=== PATIENT | male | born 1950 | race Two or more races ===

== ENCOUNTER 2022-04-16 16:46 | Inpatient (IN) | payer BC, MEDICARE ==
[~2022-04-16] VITALS: Ht 162.6 cm; Wt 70.3 kg
--- NOTE | 2022-04-16 17:00 | NUR ---
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 PACEMAKER PLACED YESTERDAY C/O "HEMATOMA" AND PAIN. WAS ADVISED TO COME TO ED. TO ER BED 1, HOOKED TO DRYING UNIT FELTING MACHINE OPERATOR, CHANGED TO HOSP GOWN, WARM BLANKET PROVIDED. AWAITING MD CRAFT
--- NOTE | 2022-04-16 17:28 | NUR ---
DR SANDERSON AT BEDSIDE FOR EVAL.
[2022-04-16 17:44] LABS: BASOPHILS # (AUTO) 0.1 K/uL (0.0-0.2); BASOPHILS % (AUTO) 0.6 % (0.0-2.0); EOSINOPHILS % (AUTO) 1.5 % (0.0-6.0); HEMATOCRIT 42 % (39-51); HEMOGLOBIN 14.2 g/dL (13.5-17.5); LYMPHOCYTES # (AUTO) 0.8 K/uL (0.8-4.8); LYMPHOCYTES % (AUTO) 9.4 % (20.0-44.0); MEAN CORPUSCULAR HGB CONC 34 g/dl (31.0-36.0); MEAN CORPUSCULAR VOLUME 92 fL (80-96); MONOCYTES % (AUTO) 11.1 % (2.0-12.0); NEUTROPHILS # (AUTO) 6.9 K/uL (1.8-8.9); NEUTROPHILS % (AUTO) 77.4 % (43.0-81.0); PLATELET COUNT (AUTO) 264 K/uL (150-450); RED BLOOD CELL COUNT(AUTO) 4.58 MIL/uL (4.5-6.0); WHITE BLOOD COUNT (AUTO) 8.9 K/uL (4.3-11.0)
--- NOTE | 2022-04-16 17:58 | NUR ---
RAPID COVID SWAB DONE AND SENT TO LAB
[2022-04-16 18:05] LABS: CALCIUM, SERUM 8.7 mg/dL (8.5-10.1); CARBON DIOXIDE 25 mmol/L (21-32); CHLORIDE 106 mmol/L (98-107); CREATININE 1.1 mg/dL (0.6-1.3); GLUCOSE 111 mg/dL (74-106); POTASSIUM 3.6 mmol/L (3.5-5.1); SODIUM SERUM 140 mmol/L (136-145); UREA NITROGEN, BLOOD 19 mg/dL (7-18)
[2022-04-16] MEDS ORDERED: LAMO100T17 PO (18:10)
[2022-04-16] MEDS ORDERED: ATOR20TA PO (18:10)
[2022-04-16] MEDS ORDERED: TRAZ-252 PO (18:10)
[2022-04-16] MEDS ORDERED: DULO20CA19 PO (18:10)
[2022-04-16] MEDS ORDERED: LISD40CA PO (18:10)
[2022-04-16 18:12] LABS: ALANINE AMINOTRANSFERASE 44 U/L (12-78); ALBUMIN 2.9 g/dL (3.4-5.0); ALKALINE PHOSPHATASE 108 U/L (46-116); ASPARTATE AMINOTRANSFERASE 23 U/L (15-37); BILIRUBIN,DIRECT 0.1 mg/dL (0.0-0.2); BILIRUBIN,TOTAL 0.5 mg/dL (0.2-1.0); TOTAL PROTEIN, SERUM 6.1 g/dL (6.4-8.2)
--- NOTE | 2022-04-16 18:59 | NUR ---
BED 311-2
[2022-04-16] MEDS ORDERED: ACETAMINOPHEN 325 MG TABLET PO PRN (19:00)
[2022-04-16] MEDS ORDERED: ONDANSETRON HCL/PF 4 MG/2 ML VIAL IVP PRN (19:00)
[2022-04-16] MEDS ORDERED: MAGNESIUM HYDROXIDE 30 ML UDC PO PRN (19:00)
[2022-04-16] MEDS ORDERED: ZOLPIDEM TARTRATE 5 MG TABLET PO PRN (19:00)
[2022-04-16] MEDS ORDERED: Z GUARD REMEDY 4 OZ OINT TP PRN (19:00)
[2022-04-16] MEDS ORDERED: MAG HYDROX/AL HYDROX/SIMETH 30 ML UDC PO PRN (19:00)
--- NOTE | 2022-04-16 19:35 | NUR ---
REPORT GIVEN TO KOBI JANSEN OF TELE UNIT
--- NOTE | 2022-04-16 19:49 | NUR ---
RECEIVED REPORT FROM INDERJIT DALEY. PATIENT WILL BE MOVED TO 311-2 FOR ADMISSION D/T POSSIBLE PACEMAKER DYSFUNCTION. PATIENT IS AAOX4. WITH PERIPHERAL LINE ON LEFT AC G18. PATIENT JUST HAD PACEMAKER PLACEMENT YESTERDAY. THERE IS A VISIBLE HEMATOMA ON LEFT UPPER ANTERIOR CHEST. ATTACHED TO MONITOR, VITALS CHECKED.
--- NOTE | 2022-04-16 19:52 | NUR ---
PATIENT TRANSFERRED UNDER ACLS
[2022-04-16 20:00] VITALS: BP 113/65
--- NOTE | 2022-04-16 20:02 | NUR ---
TRANSFERRED PATIENT TO [facility]- VIA STRETCHER.
[2022-04-16] MEDS: ASPIRIN 81 MG TAB.CHEW PO SCH (21:35)
[2022-04-16] MEDS: TRAZODONE 50 MG TABLET PO SCH (21:36)
[2022-04-16] MEDS: LamoTRIgine 100 MG TABLET PO SCH (21:37)
--- NOTE | 2022-04-16 22:10 | NUR ---
GREENKEEPERSOFTWARE PROJECT MANAGER NOTES PATIENT TRANSFERRED IN UNIT AT AROUND 1950, ACCOMPANIED BY 2 ER PERSONNELS AND HIS , VIA STRETCHER. PATIENT IS A/OX4, NO S/S OF APPARENT DISTRESS ON ROOM AIR. PATIENT ANXIOUS/WORRIED-- EMOTIONAL SUPPORT OFFERED. WISHES TO BE FULL CODE. AND IS UP-TO-DATE WITH ALL HIS IMMUNIZATIONS INCLUDING COVID. PATIENT LCW WHERE PACEMAKER AT NOTED AT BE RED. NEW ID BAND ON PATIENT BEDSIDE. IV ACCESS L.AC #18G -- SL. ORIENTED IN THE UNIT AND THE USE OF CALL LIGHT. BELONGINGS INVENTORIED AND SIGNED FOR, PER , SHE'S TAKING PATIENT'S L. AND R. HEARING AIDS WITH HER HOME. SAFETY IN PLACE. WILL CONTINUE WITH PATIENT'S PLAN OF CARE. PATIENT READING AV PACING WITH THE LOWEST BPM 34, PATIENT ASYMPTOMATIC. V/S FOLLOWS: 113/65, HR-45, RR-18, T-98.2, SATURATION 95% ON ROOM AIR. WILL MONITOR
[2022-04-17] VITALS: BP 96/52
--- NOTE | 2022-04-17 02:58 | NUR ---
HR GOES DOWN TO 30, LOWEST. PATIENT ASYMPTOMATIC. STARTED ON OXYGEN 2LPM VIA NC FOR NOW.
[2022-04-17 04:00] VITALS: BP 106/55
[2022-04-17 05:00] VITALS: BP 106/50
[2022-04-17 06:27] LABS: BASOPHILS # (AUTO) 0.1 K/uL (0.0-0.2); BASOPHILS % (AUTO) 0.6 % (0.0-2.0); EOSINOPHILS % (AUTO) 4.6 % (0.0-6.0); HEMATOCRIT 41 % (39-51); HEMOGLOBIN 13.5 g/dL (13.5-17.5); LYMPHOCYTES # (AUTO) 1.2 K/uL (0.8-4.8); LYMPHOCYTES % (AUTO) 15.4 % (20.0-44.0); MEAN CORPUSCULAR HGB CONC 33 g/dl (31.0-36.0); MEAN CORPUSCULAR VOLUME 93 fL (80-96); MONOCYTES # (AUTO) 0.9 K/uL (0.1-1.30); MONOCYTES % (AUTO) 11.2 % (2.0-12.0); NEUTROPHILS # (AUTO) 5.5 K/uL (1.8-8.9); NEUTROPHILS % (AUTO) 68.2 % (43.0-81.0); PLATELET COUNT (AUTO) 244 K/uL (150-450); RED BLOOD CELL COUNT(AUTO) 4.44 MIL/uL (4.5-6.0); WHITE BLOOD COUNT (AUTO) 8.1 K/uL (4.3-11.0)
--- NOTE | 2022-04-17 07:05 | NUR ---
RN OPENING RECEIVED PT IN BED AWAKE. A/OX4. NO SIGNS OF RESPIRATORY DISTRESS OR SOB AT THIS TIME. ON 2L NC. TELE READING HR IN 30S AV PACING. J2EE ARCHITECT ENDORSED THAT DOCTOR IS NOTIFIED AND WILL HAVE A CARDIO CONSULT TODAY. NO COMPLAINTS OF PAIN AT THIS TIME. IV LEFT AC 18G INTACT AND PATENT. SAFETY CHECKS: BED LOCKED IN LOWEST POSITION, CALL LIGHT WITHIN REACH, SIDE RAILS X2. WILL CONTINUE TO MONITOR.
[2022-04-17 07:18] LABS: CALCIUM, SERUM 8.4 mg/dL (8.5-10.1); MAGNESIUM 2.4 mg/dL (1.8-2.4); POTASSIUM 3.7 mmol/L (3.5-5.1)
--- NOTE | 2022-04-17 07:29 | NUR ---
STAFF DEVELOPMENT MANAGER CLOSING NOTE PATIENT IN BED, A/OX4. NO S/S OF APPARENT DISTRESS ON 2LPM OF O2 VIA NC. NO C/O PAIN AT THIS TIME. ALL NEEDS ATTENDED. ALL SCHEDULED MEDICATIONS ADMINISTERED. SAFETY KEPT IN PLACE THE WHOLE SHIFT. ENDORSED TO INDERJIT IVEY FOR CONTINUITY OF PATIENT CARE.
[2022-04-17 08:21] VITALS: BP 119/74
[2022-04-17 08:21] LABS: THYROID STIMULATING HORMONE 2.325 uIU/mL (0.358-3.74)
[2022-04-17] MEDS: PANTOPRAZOLE 40 MG TABLET.DR PO SCH (08:53)
[2022-04-17] MEDS: DULOXETINE HCL 20 MG CAPSULE.DR PO SCH (08:53)
[2022-04-17] MEDS: ASPIRIN 81 MG TAB.CHEW PO SCH (08:53)
[2022-04-17] MEDS ORDERED: POLYVINYL ALCOHOL 15 ML BOTTLE EACHEYE PRN (09:00)
[2022-04-17] MEDS ORDERED: VANCOMYCIN 1 GM in IV D5W 250 ML IV ONE (13:00)
--- NOTE | 2022-04-17 13:37 | NUR ---
RN NOTE PT TAKEN DOWN FOR PROCEDURE. CONDITION STABLE UPON TRANSFER.
[2022-04-17] MEDS ORDERED: LIDOCAINE 1% INJ 50 ML MDV IJ ONE (13:52)
[2022-04-17] MEDS ORDERED: IOHEXOL 0 ML IV ONE (13:54)
[2022-04-17] MEDS ORDERED: BACITRACIN ZINC OINT PACKET 1 EA PACKET TP ONE (13:56)
[2022-04-17] MEDS ORDERED: BUPIVACAINE 0.5 % PF 150 MG/30 ML VIAL ONE (14:27)
[2022-04-17] MEDS ORDERED: POLYMYXIN B SULFATE 500,000 UNITS ONE (14:50)
--- NOTE | 2022-04-17 16:30 | NUR ---
RN NOTE PT BACK FROM PROCEDURE. VITAL SIGNS STABLE. ON TELE PACING AT 65BPM. PT STABLE AT THIS TIME. RESTING COMFORTABLY IN BED. WILL CONTINUE TO MONITOR.
--- NOTE | 2022-04-17 18:45 | NUR ---
RN CLOSING NOTE PT IN BED AWAKE. A/OX4. NO SIGNS OF RESPIRATORY DISTRESS OR SOB NOTED. NO C/O OF PAIN OR DISCOMFORT AT THIS TIME. TELE MONITOR READING AV PACING AT 72. IV IN LEFT AC 18G INTACT AND PATENT. ALL SCHEDULED MEDS GIVEN. ALL NEEDS ATTENDED TO. SAFETY CHECKS IN PLACE: BED LOCKED, BED IN LOWEST POSITION, CALL LIGHT WITHIN REACH. WILL ENDORSE TO DATE PULLER NURSE FOR MARIA DOLORES.
--- NOTE | 2022-04-17 19:40 | NUR ---
DIGITAL CARTOGRAPHIC TECHNICIAN OPENING NOTES RECEIVED PATIENT IN BED: AWAKE, ALERT AND ORIENTED X 4. BREATHING EVEN AND NONLABORED. ON ROOM AIR; WELL TOLERATING. NOT IN ANY FORM OF RESPIRATORY DISTRESS. ON TELEMETRY MONITORING WITH READING OF V PACING HR-71. WITH IV ACCESS ON LEFT ANTECUBITAL 18g: PATENT, INTACT AND SALINE LOCKED. ABLE TO MAKE NEEDS KNOWN. FALL AND SAFETY MEASURES IMPLEMENTED: CALL LIGHT AND TABLE WITHIN REACH, SIDE RAILS UP X 2, BED IN LOWEST LOCKED POSITION. WILL CONTINUE PLAN OF CARE.
[2022-04-17 20:00] VITALS: BP 146/74
[2022-04-17 20:03] VITALS: BP 146/74
--- NOTE | 2022-04-17 21:00 | NUR ---
RN NOTES RECEIVED CRITICAL LAB: TROPONIN - 180; ERI MEEKS NP NOTIFIED, NO NEW ORDER MADE.
[2022-04-17] MEDS ORDERED: ATORVASTATIN 10 MG TABLET PO SCH (22:00)
[2022-04-17] MEDS: TRAZODONE 50 MG TABLET PO SCH (22:28)
[2022-04-17] MEDS: LamoTRIgine 100 MG TABLET PO SCH (22:28)
[2022-04-18] VITALS: BP 123/77
[2022-04-18 00:05] VITALS: BP 123/77
[2022-04-18 04:00] VITALS: BP 130/80
[2022-04-18 05:13] VITALS: BP 130/80
[2022-04-18 06:28] LABS: BASOPHILS % (AUTO) 0.5 % (0.0-2.0); EOSINOPHILS % (AUTO) 5.9 % (0.0-6.0); HEMATOCRIT 42 % (39-51); HEMOGLOBIN 14.3 g/dL (13.5-17.5); LYMPHOCYTES # (AUTO) 1.1 K/uL (0.8-4.8); LYMPHOCYTES % (AUTO) 14.1 % (20.0-44.0); MEAN CORPUSCULAR HGB CONC 34 g/dl (31.0-36.0); MEAN CORPUSCULAR VOLUME 92 fL (80-96); MONOCYTES # (AUTO) 0.8 K/uL (0.1-1.30); MONOCYTES % (AUTO) 10.5 % (2.0-12.0); NEUTROPHILS # (AUTO) 5.2 K/uL (1.8-8.9); PLATELET COUNT (AUTO) 259 K/uL (150-450); RED BLOOD CELL COUNT(AUTO) 4.62 MIL/uL (4.5-6.0); WHITE BLOOD COUNT (AUTO) 7.6 K/uL (4.3-11.0)
[2022-04-18 06:59] LABS: CALCIUM, SERUM 8.8 mg/dL (8.5-10.1); CREATININE 1.1 mg/dL (0.6-1.3); MAGNESIUM 2.2 mg/dL (1.8-2.4); PHOSPHORUS 3.4 mg/dL (2.5-4.9); POTASSIUM 3.8 mmol/L (3.5-5.1)
--- NOTE | 2022-04-18 07:05 | NUR ---
RN OPENING NOTE RECEIVED PT IN BED AWAKE. NO SIGNS OF RESPIRATORY DISTRESS OF SOB NOTED. TELE BOX READING AV PACING AT 60. IV IN LEFT AC 18G SALINE LOCK. CAN MAKE NEEDS KNOWN. NO C/O OF PAIN AT THIS TIME. SAFETY MEASURES IN PLACE: BED LOCKED, BED IN LOWEST POSITION, CALL LIGHT WITHIN REACH. WILL CONTINUE TO MONITOR.
--- NOTE | 2022-04-18 07:20 | NUR ---
NOZZLE OPERATOR CLOSING NOTES PATIENT IN BED: AWAKE, A/O X 4. BREATHING EVENLY AND UNLABORED. STABLE ON ROOM AIR. IN NO APPARENT DISTRESS. ON TELE MONITOR WITH CURRENT READING OF V PACING HR - 60. IV ACCESS ON LEFT ANTECUBITAL 18g: PATENT, INTACT AND SALINE LOCKED. ALL NEEDS MET. FALL AND SAFETY MEASURES MAINTAINED: CALL LIGHT AND TABLE WITHIN REACH, SIDE RAILS UP X 2, BED IN LOWEST LOCKED POSITION. ENDORSED TO UCHE RN FOR MARIA DOLORES.
[2022-04-18 08:00] VITALS: BP 140/82
[2022-04-18] MEDS: PANTOPRAZOLE 40 MG TABLET.DR PO SCH (08:27)
[2022-04-18] MEDS: ASPIRIN 81 MG TAB.CHEW PO SCH (08:27)
[2022-04-18] MEDS: DULOXETINE HCL 20 MG CAPSULE.DR PO SCH (08:27)
[2022-04-18] MEDS ORDERED: ASPI-1169 PO (13:29)
--- NOTE | 2022-04-18 14:59 | NUR ---
RN NOTE PT IS DISCHARGED TO HOME, PICKED UP BY . CONDITION AT TIME OF DISCHARGE IS STABLE. DISCHARGE EDUCATION AND INSTRUCTIONS GIVEN. VERBAL PT UNDERSTANDING OF EDUCATION AND INSTRUCTIONS. IV REMOVED. ID BAND REMOVED. ALL NEEDS ATTENDED TO. NO PAIN OR SOB AT TIME OF DISCHARGE. PT STABLE.
== END 2022-04-18 15:00 | disposition home or self-care (01) | DRG 258 ==
LOC: ER 16:55 → TELE 19:57
PROVIDERS: ADMIT Student in an Organized Health Care Education/Training Program; ATTEND Student in an Organized Health Care Education/Training Program
PROC: 02WA3MZ Revision of Cardiac Lead in Heart, Percutaneous Approach (ICD-10-PCS; principal; 2022-04-17)
PROC: 0JH606Z Insertion of Pacemaker, Dual Chamber into Chest Subcutaneous Tissue and Fascia, Open Approach (ICD-10-PCS; 2022-04-17)
DX: T82.120A Displacement of cardiac electrode, initial encounter (principal); I21.A1 Myocardial infarction type 2; E46 Unspecified protein-calorie malnutrition; I44.2 Atrioventricular block, complete; R00.1 Bradycardia, unspecified; Z95.0 Presence of cardiac pacemaker; Z20.822 Contact with and (suspected) exposure to COVID-19; Z86.79 Personal history of other diseases of the circulatory system; Z90.79 Acquired absence of other genital organ(s); E78.00 Pure hypercholesterolemia, unspecified; Z88.0 Allergy status to penicillin; Z79.899 Other long term (current) drug therapy; Y92.009 Unspecified place in unspecified non-institutional (private) residence as the place of occurrence of the external cause; Y71.2 Prosthetic and other implants, materials and accessory cardiovascular devices associated with adverse incidents; W18.30XA Fall on same level, unspecified, initial encounter; Y92.531 Health care provider office as the place of occurrence of the external cause
CPT/HCPCS: 36415; 71045-TC; 80048-TC; 80076-TC; 83735-TC; 84100-TC; 84443-TC; 84484-TC; 85025-TC; 85610-TC; 87081-TC; 93307-TC; C9803; G0378; J3370; J3490; J7030; J7060; Q9967